=== PATIENT | male | born 1965 | race Caucasian/White ===

== ENCOUNTER 2018-09-23 09:33 | Outpatient (CLI) | payer MEDICARE, MEDICAID, SELFPAY ==
[2018-09-23 10:11] LABS: Abs Immature Grans 0.12 k/cumm (0.0-0.09); Absolute Basophil Count 0.01 k/cumm (0.0-0.2); Absolute Eosinophil Count 0.05 k/cumm (0.0-0.7); Absolute Monocyte Count 0.57 k/cumm (0.11-0.7); Absolute Neutrophil Count 7.43 k/cumm (1.2-6.7); Basophils % 0.1; Eosinophils % 0.6; HCT 40.6 % (40.0-50.0); Immature Grans % 1.3; Lymphocytes % 9.9; Mean Corp. HGB Concentration 34.5 g/dL (32.0-36.0); Mean Corpuscular Volume 95.8 fL (80-95); Mean Platelet Volume 9.5 fL (8.0-11.0); Monocytes % 6.3; Neutrophils % 81.8; Platelet Count 153 x1000/uL (130-400); RBC 4.24 m/cumm (4.50-6.00); RBC Distribution Width 13.9 % (11.8-14.1); White Blood Cell Count 9.08 k/cumm (4.4-10.8)
[2018-09-23 10:16] LABS: ALT 21 U/L (12-78); AST 16 U/L (15-37); Albumin 3.7 g/dL (3.4-5.0); Alkaline Phosphatase 82 U/L (46-116); Anion Gap 9.6 mmol/L (3-11); BUN 11 mg/dL (7-18); Bilirubin, Total 0.6 mg/dL (0.2-1.0); CO2 25.4 mmol/L (21.0-32.0); CREATININE 0.56 mg/dL (0.70-1.30); Calcium 8.4 mg/dL (8.5-10.1); Chloride 97 mmol/L (98-107); Glucose 111 mg/dL (70-100); Magnesium 1.7 mg/dL (1.8-2.4); Potassium 4.1 mmol/L (3.5-5.1); Sodium 132 mmol/L (136-145); Total Protein 7.1 g/dL (6.4-8.2)
== END 2018-09-23 09:53 ==
PROVIDERS: Internal Medicine; PCP Family Medicine; Visit Provider Radiology Radiation Oncology
DX: C15.9 Malignant neoplasm of esophagus, unspecified (principal)
CPT/HCPCS: 36415; 80053; 83735; 85025

== ENCOUNTER 2018-10-02 09:55 | Outpatient (CLI) | payer MEDICARE, MEDICAID, SELFPAY ==
[2018-10-02 10:28] LABS: Abs Immature Grans 0.04 k/cumm (0.0-0.09); Absolute Basophil Count 0.01 k/cumm (0.0-0.2); Absolute Eosinophil Count 0.07 k/cumm (0.0-0.7); Absolute Lymphocyte Count 0.59 k/cumm (1.2-3.4); Absolute Monocyte Count 0.47 k/cumm (0.11-0.7); Absolute Neutrophil Count 2.63 k/cumm (1.2-6.7); Basophils % 0.3; Eosinophils % 1.8; HCT 39.9 % (40.0-50.0); HGB 13.5 g/dL (13.5-17.5); Lymphocytes % 15.5; Mean Corp. HGB Concentration 33.8 g/dL (32.0-36.0); Mean Corpuscular Hemoglobin 33.7 pg (27.0-33.0); Mean Corpuscular Volume 99.5 fL (80-95); Mean Platelet Volume 8.8 fL (8.0-11.0); Monocytes % 12.3; Neutrophils % 69.1; Platelet Count 147 x1000/uL (130-400); RBC 4.01 m/cumm (4.50-6.00); RBC Distribution Width 14.5 % (11.8-14.1); White Blood Cell Count 3.81 k/cumm (4.4-10.8)
[2018-10-02 10:45] LABS: ALT 26 U/L (12-78); AST 17 U/L (15-37); Albumin 3.6 g/dL (3.4-5.0); Alkaline Phosphatase 92 U/L (46-116); Anion Gap 10.4 mmol/L (3-11); BUN 5 mg/dL (7-18); Bilirubin, Total 0.3 mg/dL (0.2-1.0); CO2 26.6 mmol/L (21.0-32.0); Calcium 8.9 mg/dL (8.5-10.1); Chloride 105 mmol/L (98-107); Glucose 103 mg/dL (70-100); Sodium 142 mmol/L (136-145); Total Protein 7.3 g/dL (6.4-8.2)
== END 2018-10-02 10:15 ==
PROVIDERS: PCP Family Medicine; Visit Provider Internal Medicine
DX: C15.9 Malignant neoplasm of esophagus, unspecified (principal)
CPT/HCPCS: 36415; 80053; 83735; 85025

== ENCOUNTER 2018-10-14 10:02 | Outpatient (CLI) | payer MEDICARE, MEDICAID, SELFPAY ==
[2018-10-14 10:35] LABS: Abs Immature Grans 0.07 k/cumm (0.0-0.09); Absolute Basophil Count 0.01 k/cumm (0.0-0.2); Absolute Eosinophil Count 0.06 k/cumm (0.0-0.7); Absolute Lymphocyte Count 0.37 k/cumm (1.2-3.4); Absolute Monocyte Count 1.07 k/cumm (0.11-0.7); Basophils % 0.2; HCT 38.6 % (40.0-50.0); HGB 13.6 g/dL (13.5-17.5); Immature Grans % 1.1; Mean Corp. HGB Concentration 35.2 g/dL (32.0-36.0); Mean Corpuscular Volume 96.5 fL (80-95); Mean Platelet Volume 8.8 fL (8.0-11.0); Monocytes % 17.3; Neutrophils % 74.4; Platelet Count 134 x1000/uL (130-400); RBC Distribution Width 14.5 % (11.8-14.1); White Blood Cell Count 6.18 k/cumm (4.4-10.8)
[2018-10-14 11:14] LABS: ALT 22 U/L (12-78); AST 11 U/L (15-37); Albumin 3.7 g/dL (3.4-5.0); Alkaline Phosphatase 98 U/L (46-116); Anion Gap 13.4 mmol/L (3-11); BUN 11 mg/dL (7-18); Bilirubin, Total 0.4 mg/dL (0.2-1.0); CO2 23.6 mmol/L (21.0-32.0); Calcium 9.1 mg/dL (8.5-10.1); Chloride 102 mmol/L (98-107); Glucose 119 mg/dL (70-100); Magnesium 1.9 mg/dL (1.8-2.4); Potassium 3.2 mmol/L (3.5-5.1); Sodium 139 mmol/L (136-145); Total Protein 7.7 g/dL (6.4-8.2)
== END 2018-10-14 10:22 ==
PROVIDERS: PCP Family Medicine; Visit Provider Internal Medicine
DX: C15.9 Malignant neoplasm of esophagus, unspecified (principal)
CPT/HCPCS: 36415; 80053; 83735; 85025

== ENCOUNTER 2018-10-21 09:05 | Outpatient (CLI) | payer MEDICARE, MEDICAID, SELFPAY ==
[2018-10-21 09:39] LABS: Abs Immature Grans 0.11 k/cumm (0.0-0.09); Absolute Basophil Count 0.01 k/cumm (0.0-0.2); Absolute Eosinophil Count 0.11 k/cumm (0.0-0.7); Absolute Lymphocyte Count 0.35 k/cumm (1.2-3.4); Absolute Monocyte Count 0.88 k/cumm (0.11-0.7); Absolute Neutrophil Count 5.48 k/cumm (1.2-6.7); Basophils % 0.1; Eosinophils % 1.6; HGB 13.3 g/dL (13.5-17.5); Immature Grans % 1.6; Mean Corp. HGB Concentration 35.9 g/dL (32.0-36.0); Mean Corpuscular Hemoglobin 34.4 pg (27.0-33.0); Mean Corpuscular Volume 95.6 fL (80-95); Mean Platelet Volume 8.4 fL (8.0-11.0); Monocytes % 12.7; Platelet Count 134 x1000/uL (130-400); RBC 3.87 m/cumm (4.50-6.00); RBC Distribution Width 14.3 % (11.8-14.1); White Blood Cell Count 6.94 k/cumm (4.4-10.8)
[2018-10-21 09:55] LABS: ALT 24 U/L (12-78); AST 12 U/L (15-37); Albumin 3.6 g/dL (3.4-5.0); Alkaline Phosphatase 100 U/L (46-116); Anion Gap 9.4 mmol/L (3-11); BUN 8 mg/dL (7-18); Bilirubin, Total 0.6 mg/dL (0.2-1.0); CO2 29.6 mmol/L (21.0-32.0); CREATININE 0.63 mg/dL (0.70-1.30); Calcium 9.2 mg/dL (8.5-10.1); Chloride 96 mmol/L (98-107); Glucose 122 mg/dL (70-100); Magnesium 1.7 mg/dL (1.8-2.4); Sodium 135 mmol/L (136-145); Total Protein 7.3 g/dL (6.4-8.2)
[2018-10-21 09:59] LABS: Potassium 2.9 mmol/L (3.5-5.1)
== END 2018-10-21 09:25 ==
PROVIDERS: PCP Family Medicine; Visit Provider Internal Medicine
DX: C15.9 Malignant neoplasm of esophagus, unspecified (principal)
CPT/HCPCS: 36415; 80053; 83735; 85025

== ENCOUNTER 2018-10-28 02:14 | Outpatient (CLI) | payer MEDICARE, MEDICAID, SELFPAY ==
[2018-10-28 10:57] LABS: Abs Immature Grans 0.04 k/cumm (0.0-0.09); Absolute Basophil Count 0.01 k/cumm (0.0-0.2); Absolute Eosinophil Count 0.17 k/cumm (0.0-0.7); Absolute Lymphocyte Count 0.19 k/cumm (1.2-3.4); Absolute Monocyte Count 0.38 k/cumm (0.11-0.7); Absolute Neutrophil Count 4.35 k/cumm (1.2-6.7); Basophils % 0.2; Eosinophils % 3.3; HCT 33.5 % (40.0-50.0); HGB 11.6 g/dL (13.5-17.5); Immature Grans % 0.8; Lymphocytes % 3.7; Mean Corp. HGB Concentration 34.6 g/dL (32.0-36.0); Mean Corpuscular Hemoglobin 34.1 pg (27.0-33.0); Mean Corpuscular Volume 98.5 fL (80-95); Mean Platelet Volume 8.7 fL (8.0-11.0); Monocytes % 7.4; Neutrophils % 84.6; Platelet Count 120 x1000/uL (130-400); RBC Distribution Width 14.5 % (11.8-14.1); White Blood Cell Count 5.14 k/cumm (4.4-10.8)
[2018-10-28 11:12] LABS: ALT 25 U/L (12-78); AST 13 U/L (15-37); Alkaline Phosphatase 95 U/L (46-116); BUN 9 mg/dL (7-18); Bilirubin, Total 0.4 mg/dL (0.2-1.0); CREATININE 0.54 mg/dL (0.70-1.30); Calcium 8.9 mg/dL (8.5-10.1); Chloride 100 mmol/L (98-107); Glucose 190 mg/dL (70-100); Magnesium 1.7 mg/dL (1.8-2.4); Potassium 3.5 mmol/L (3.5-5.1); Sodium 137 mmol/L (136-145); Total Protein 6.5 g/dL (6.4-8.2)
== END 2018-10-28 02:34 ==
PROVIDERS: PCP Family Medicine; Visit Provider Internal Medicine
DX: C15.9 Malignant neoplasm of esophagus, unspecified (principal)
CPT/HCPCS: 36415; 80053; 83735; 85025

== ENCOUNTER 2018-11-28 16:12 | Outpatient (CLI) | payer MEDICARE, MEDICAID, SELFPAY ==
[2018-11-28 16:32] LABS: Abs Immature Grans 0.11 k/cumm (0.0-0.09); Absolute Basophil Count 0.02 k/cumm (0.0-0.2); Absolute Eosinophil Count 0.09 k/cumm (0.0-0.7); Absolute Lymphocyte Count 1.15 k/cumm (1.2-3.4); Absolute Monocyte Count 0.85 k/cumm (0.11-0.7); Absolute Neutrophil Count 4.96 k/cumm (1.2-6.7); Basophils % 0.3; Eosinophils % 1.3; Immature Grans % 1.5; Mean Corp. HGB Concentration 32.4 g/dL (32.0-36.0); Mean Corpuscular Hemoglobin 34.8 pg (27.0-33.0); Mean Corpuscular Volume 107.2 fL (80-95); Mean Platelet Volume 8.8 fL (8.0-11.0); Monocytes % 11.8; Neutrophils % 69.1; Platelet Count 230 x1000/uL (130-400); RBC 3.45 m/cumm (4.50-6.00); RBC Distribution Width 18.7 % (11.8-14.1); White Blood Cell Count 7.18 k/cumm (4.4-10.8)
[2018-11-28 17:11] LABS: Anisocytosis 1+; Hypochromasia 1+; Macrocytosis 1+; Polychromasia Present
[2018-11-28 17:20] LABS: Bilirubin Negative (Negative); Blood Negative (Negative); Clarity Cloudy (Clear); Glucose Negative (Negative); Ketones Negative (Negative); Leukocyte Esterase Negative (Negative); Nitrite Negative (Negative); Specific Gravity 1.015 (1.005-1.025); pH 8.5 (5-8)
[2018-11-28 17:31] LABS: Bacteria Few HPF (Negative); C & S Indicated? No; Casts Negative LPF (Negative); Crystals Many Amorphous HPF (Negative); Epithelial Cells Negative HPF (Negative); Mucus Negative (Negative); RBC Negative (0-2); WBC Negative HPF (0-5)
[2018-11-28 19:19] LABS: ALT 16 U/L (12-78); AST 9 U/L (15-37); Albumin 3.4 g/dL (3.4-5.0); Alkaline Phosphatase 89 U/L (46-116); Anion Gap 11.4 mmol/L (3-11); BUN 12 mg/dL (7-18); Bilirubin, Total 0.3 mg/dL (0.2-1.0); CO2 25.6 mmol/L (21.0-32.0); CREATININE 0.67 mg/dL (0.70-1.30); Calcium 8.6 mg/dL (8.5-10.1); Chloride 105 mmol/L (98-107); Glucose 80 mg/dL (70-100); Potassium 3.8 mmol/L (3.5-5.1); Sodium 142 mmol/L (136-145); TSH 1.98 uIU/mL (0.36-3.74); Total Protein 7.3 g/dL (6.4-8.2)
== END 2018-11-28 16:32 ==
PROVIDERS: PCP Family Medicine; Visit Provider Nurse Practitioner
DX: R53.82 Chronic fatigue, unspecified (principal); C15.3 Malignant neoplasm of upper third of esophagus
CPT/HCPCS: 36415; 80053; 81003; 81015; 84443; 85025

== ENCOUNTER 2019-03-25 12:37 | Outpatient (CLI) | payer MEDICARE, MEDICAID, SELFPAY ==
[2019-03-25 13:04] LABS: Abs Immature Grans 0.13 k/cumm (0.0-0.09); Absolute Basophil Count 0.01 k/cumm (0.0-0.2); Absolute Neutrophil Count 6.01 k/cumm (1.2-6.7); Basophils % 0.1; HCT 42.9 % (40.0-50.0); HGB 14.8 g/dL (13.5-17.5); Immature Grans % 1.8; Lymphocytes % 8.2; Mean Corp. HGB Concentration 34.5 g/dL (32.0-36.0); Mean Corpuscular Hemoglobin 34.2 pg (27.0-33.0); Mean Corpuscular Volume 99.1 fL (80-95); Mean Platelet Volume 8.6 fL (8.0-11.0); Monocytes % 8.2; Neutrophils % 81.7; Platelet Count 222 x1000/uL (130-400); RBC 4.33 m/cumm (4.50-6.00); RBC Distribution Width 14.9 % (11.8-14.1); White Blood Cell Count 7.35 k/cumm (4.4-10.8)
[2019-03-25 13:21] LABS: ALT 38 U/L (16-63); AST 33 U/L (15-37); Albumin 3.6 g/dL (3.4-5.0); Alkaline Phosphatase 93 U/L (46-116); Anion Gap 19.1 mmol/L (3-11); BUN 12 mg/dL (7-18); Bilirubin, Total 0.7 mg/dL (0.2-1.0); CO2 22.9 mmol/L (21.0-32.0); CREATININE 0.87 mg/dL (0.70-1.30); Calcium 9.2 mg/dL (8.5-10.1); Chloride 94 mmol/L (98-107); Glucose 262 mg/dL (74-106); Magnesium 1.7 mg/dL (1.8-2.4); Potassium 3.5 mmol/L (3.5-5.1); Sodium 136 mmol/L (136-145); Total Protein 7.5 g/dL (6.4-8.2)
== END 2019-03-25 12:57 ==
PROVIDERS: PCP Family Medicine; Visit Provider Internal Medicine
DX: C15.9 Malignant neoplasm of esophagus, unspecified (principal)
CPT/HCPCS: 36415; 80053; 83735; 85025

== ENCOUNTER 2020-08-31 07:36 | Outpatient (RCR) | payer OTHER, MEDICAID, SELFPAY ==
--- OUTSIDE RECORDS SUMMARY | 2020-08-31 07:44 | XMS_ITS ---
:1965 External Reference #:[id number] Author Care Team Providers Name Role Phone Maddie Anderson Primary Care Provider Unavailable Allergies Code Code System Name Reaction Severity Status Onset Bee Venom Anaphylaxis Severe Active ? Protein (Honey Bee) Medications Name Status Start Date Stop Date ? ? acetazolamide 250 mg tablet Active ? Not available Take 2 tablets 3 times a day by oral route. aspirin 81 mg tablet,delayed release Active ? Not available Take 1 tablet every day by oral route. divalproex 500 mg tablet,delayed release Active ? Not available Take 1 tablet twice a day by oral route. Flovent HFA 110 mcg/actuation aerosol inhaler Active ? Not available Inhale 1 puff twice a day by inhalation route. Flucelvax Quad (PF) 60 mcg Completed ? 04/01/2020 (15 mcg x 4)/0.5 mL IM syringe fluvoxamine 50 mg tablet Active ? Not arie ilable Take 1 tablet every day by oral route. gabapentin 100 mg capsule Active ? Not av ailable Take 3 capsules 3 times a day by oral route. ibuprofen 200 mg tablet Active ? Not avai lable Take 2 tablets every 6 hours by oral route with meals. levothyroxine 25 mcg tablet Active ? Not available TAKE 1 TABLET BY MOUTH DAILY lisinopril 10 mg tablet Active ? Not avai lable TAKE 1 TABLET BY MOUTH EVERY DAY lorazepam 1 mg tablet Active ? Not availa ble TAKE 1 TABLET BY MOUTH THREE TIMES DAILY NEEDED ondansetron HCl 8 mg tablet Active ? Not available TAKE 1 TABLET BY MOUTH TWICE DAILY NEEDED oxycodone 5 mg tablet Completed ? 06/04/2020 TK 1 T Q 4 TO 6 H PRN FOR SEVERE PAIN potassium chloride ER 10 mEq capsule,extended release Active ? Not available Take 1 capsule every day by oral route. pravastatin 40 mg tablet Active ? Not arie ilable Take 1 tablet every day by oral route. riboflavin (vitamin B2) 100 mg tablet Active ? Not available Take 4 tablets every day by oral route. risperidone 1 mg tablet Active ? Not avai lable Take 1 tablet by oral route. topiramate 50 mg tablet Active ? Not avai lable Take 1 tablet twice a day by oral route. trazodone 100 mg tablet Active ? Not avai lable Take 2 tablets by oral route. Problems Name Status Onset Date Source ? Malignant Tumor of Esophagus Active 07/17/2018 ? 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 Anxiety Active 04/01/2020 ? Alcohol Dependence Unknown 04/01/2020 ? Alcohol Dependence Active 04/01/2020 ? Depressive Disorder Active 04/01/2020 ? Hypertensive Disorder Active 04/01/2020 ? 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 Procedures Date Name Performed by ? ? Tonsillectomy Information not avai lable ? Operation on Lung Information not avai lable ? Shoulder Surgery Procedure Information n ot available Notes: Left ? Hernia Repair Information not avai lable Results Lab Results None recorded. Past Encounters 07/08/2020 Hypertensive Disorder; Malignant Tumor o f Esophagus; Depressive Disorder; Tobacco User Carlos Anderson MD: [address] [place] [address], Ph. 06/04/2020 Essential Hypertension; Chronic Headache Disorder; Malignant Tumor of Esophagus Carlos Anderson MD: [address] [place] [phone], Ph. Social History Tobacco Smoking Status Heavy Tobacco Smoker (1/2 PPD) Vaccine List Vaccine Type COVID-19, mRNA, LNP-S, PF, 100 mcg/0.5 m L dose 06/26/2020?0.5 mL influenza, recombinant, quadrIvalent,inj ectable, preservative free 01/15/2020 Plan of Care Reminders Provider Appointments None ? ? recorded. Lab None ? ? recorded. Referral None ? ? recorded. Procedures None ? ? recorded. Surgeries None ? ? recorded. Imaging None ? ? recorded. Vitals 07/08/2020 02:15PM Office Visit 30 Height Blood Pressure 5 ft 11 in 140/77 mm[Hg] 06/04/2020 04:30PM Office Visit 30 Height Weight BMI Blood Pressure 5 ft 11 in 260 lbs 36.3 kg/m2 160/90 mm[Hg]
--- OUTSIDE RECORDS SUMMARY | 2020-08-31 07:44 | XMS_ITS | Encounter Summary ---
:1965 External Reference #:[id number] Author Reason for Visit None recorded. Assessment and Plan 1. Essential hypertension ? lisinopril 10 mg tablet 2. Chronic headache disorder ? riboflavin (vitamin B2) 10 0 mg tablet 3. Malignant tumor of esophagus Discussed unavoidable need to wait for f uture CT scan. He ;understands but still stressful. He will f/u with oncology as planned. Discussion Note: None recorded.Patient educational handouts: No information available. Plan of Care Reminders Provider Appointments Office 10/08/2020 Carlos Anderson MD Visit 30 1:45PM Lab None ? ? recorded. Referral None ? ? recorded. Procedures None ? ? recorded. Surgeries None ? ? recorded. Imaging None ? ? recorded. Medications Name Start Date ? ? acetazolamide 250 mg tablet ? Take 2 tablets 3 times a day by oral route. aspirin 81 mg tablet,delayed release ? Take 1 tablet every day by oral route. divalproex 500 mg tablet,delayed release ? Take 1 tablet twice a day by oral route. Flovent HFA 110 mcg/actuation aerosol inhaler ? Inhale 1 puff twice a day by inhalation route. fluvoxamine 50 mg tablet ? Take 1 tablet every day by oral route. gabapentin 100 mg capsule ? Take 3 capsules 3 times a day by oral route. ibuprofen 200 mg tablet ? Take 2 tablets every 6 hours by oral route with meals . levothyroxine 25 mcg tablet ? TAKE 1 TABLET BY MOUTH DAILY lisinopril 10 mg tablet ? TAKE 1 TABLET BY MOUTH EVERY DAY lorazepam 1 mg tablet ? TAKE 1 TABLET BY MOUTH THREE TIMES DAILY NEEDED ondansetron HCl 8 mg tablet ? TAKE 1 TABLET BY MOUTH TWICE DAILY NEEDED potassium chloride ER 10 mEq capsule,extended release ? Take 1 capsule every day by oral route. pravastatin 40 mg tablet ? Take 1 tablet every day by oral route. riboflavin (vitamin B2) 100 mg tablet ? Take 4 tablets every day by oral route. risperidone 1 mg tablet ? Take 1 tablet by oral route. topiramate 50 mg tablet ? Take 1 tablet twice a day by oral route. trazodone 100 mg tablet ? Take 2 tablets by oral route. Medications Administered None recorded. Vitals Height Weight BMI Blood Pressure 5 ft 11 in 260 lbs 36.3 kg/m2 160/90 mm[Hg] Results Lab Results None recorded. Allergies Code Code System Name Reaction Severity Onset Bee Venom Anaphylaxis Severe ? Protein (Honey Bee) Problems Name Status Onset Date Source ? Malignant Tumor of Esophagus Active 07/17/2018 ? Anxiety Active 04/01/2020 ? Alcohol Dependence Active 04/01/2020 ? Depressive Disorder Active 04/01/2020 ? Hypertensive Disorder Active 04/01/2020 ? Procedures Date Name Performed by ? ? Tonsillectomy Information not avai lable ? Operation on Lung Information not avai lable ? Shoulder Surgery Procedure Information n ot available Notes: Left ? Hernia Repair Information not avai lable Vaccine List Vaccine Type COVID-19, mRNA, LNP-S, PF, 100 mcg/0.5 m L dose 06/26/2020?0.5 mL influenza, recombinant, quadrIvalent,inj ectable, preservative free 01/15/2020 Social History Tobacco Smoking Status Heavy Tobacco Smoker (1/2 PPD) Alcohol intake None Notes: Former - Q uit Drinking 2019 Illicit drugs Never Family History Relation Problem Onset Age of Age Notes Father Malignant tumor of (No 62 (No Notes ) pharynx Information) Mother Hypertensive disorder (No N/A (No No chrissie) Information) Functional Status Unknown. Past Encounters 06/04/2020 Essential Hypertension; Chronic Headache Disorder; Malignant Tumor of Esophagus Carlos Anderson MD: [address] [phone], Ph. History of Present Illness Note: <p>Buck is a patient of mine from [facility]. He had throat cancer. He had a PET scan that showed some small spots on his lung, too small to bx but new since the previous scan three months before.His appetite is fine. His energy is fine. He is worried that his cancer has returned and finds the 2to 3 month wait ahead stressful. His bp is elevated and he has gained weight. His last alcoholic beverage was a few weeks ago. He is a bit depressed.</p> Review of Systems ? Comprehensive General Adult ROS Reported By: Patient Constitutional: Constitutional: no fever, no night sweats, weight gain (lbs) Eyes: Eyes: no dry eyes, no vision change ENMT: Ears: no difficulty hearing, no ear pain. Nose: no nose problems, no sinus problems. Mouth/Throat: no sore throat, no teeth problems, no sinusitis Cardiovascular: Cardiovascular: no chest finesse n, no shortness of breath when walking, no ankle swelling Respiratory: Respiratory: no cough, no sh ortness of breath Gastrointestinal: Gastrointestinal: no abdomin al pain, no nausea, no vomiting, no constipation, normal appetit e, no diarrhea Genitourinary: Genitourinary: no difficulty urinating Musculoskeletal: Musculoskeletal: no muscle a ches, no arthralgias/joint pain, no back pain Integumentary: Skin: no rashes, no changes in hair/nails Neurologic: Neurologic: no loss of consc iousness, no dizziness, no headaches Psychiatric: Psych: no depression, no sle ep disturbances, no anxiety Endocrine: Endocrine: no fatigue Allergic/Immunologic: Allergy/Immunologic: no sinu s pressure Physical Exam ? General Adult Exam Reported By: Patient Constitutional: General Appearance: healthy- appearing, well-developed, obese. Level of Distress: NAD. Ambulation : ambulating normally Psychiatric: Insight: good judgement. Men carlos manuel Status: active and alert, normal mood, normal affect. Orienta tion: to time, to place, to person. Memory: recent memory normal , remote memory normal Head: Head: normocephalic, atrauma tic Eyes: Lids and Conjunctivae: non-i njected, no discharge. EOM: EOMI. Lens: clear. Sclerae: non-icteric ENMT: Ears: no lesions on external ear. Hearing: no hearing loss. Nose: no lesions on external nose, nares patent. Oropharynx: no erythema, no exudates Neck: Neck: no masses. Lymph Nodes : no cervical LAD, no supraclavicular LAD Lungs: Respiratory effort: no dyspn ea. Auscultation: breath sounds normal, good air movement, CTA excep t as noted, no wheezing, no rales/crackles, no rhonchi Cardiovascular: Heart Auscultation: RRR, nor mal S1, normal S2, no murmurs. Pulses including femoral / pedal: n ormal throughout Musculoskeletal:: Motor Strength and Tone: nor mal motor strength, normal tone. Joints, Bones, and Muscles: normal movement of all extremities, no bony abnormalities, no contr actures, no tenderness Neurologic: Gait and Station: normal gai t. Coordination and Cerebellum: no tremor Skin: Inspection and palpation: no rash, no lesions
--- OUTSIDE RECORDS SUMMARY | 2020-08-31 07:44 | XMS_ITS | Encounter Summary ---
:1965 External Reference #:[id number] Author Reason for Visit follow up ER visit Assessment and Plan 1. Hypertensive disorder BP controlled. No change in me ds. 2. Malignant tumor of esophagus Waiting for the results of the biopsy on his esophagus. F/u with oncology in September, sooner if path is positive. 3. Depressive disorder Stable given the circumstances . He has a hard time not worrying. 4. Tobacco user Discussed importance and strat egies for smoking cessation. Discussion Note: None recorded.Patient educational handouts: No [...] route. Medications Administered None recorded. Vitals Height Blood Pressure 5 ft 11 in 140/77 mm[Hg] Results Lab Results None recorded. Allergies [...] chrissie) Information) Functional Status Unknown. Past Encounters 07/08/2020 Hypertensive Disorder; Malignant Tumor o f Esophagus; Depressive Disorder; Tobacco User Carlos Anderson MD: [address] [place] [phone], Ph. History of Present Illness Note: <p>Buck is here to f/u. He had EGD and bx. He is concerned that his cancer may be back. He has not heard the bx report yet. He is smoking < 1 ppd. He is eating ok. Swallowing is better since his esophagus was dilated. He is not drinking alcohol.</p> Review of Systems ? Comprehensive General Adult ROS Reported By: Patient Constitutional: Constitutional: no fever, no chills ENMT: Nose: frequent nosebleeds; R ight nostril Cardiovascular: Cardiovascular: no chest finesse n, palpitations Respiratory: Respiratory: no cough, short ness of breath Gastrointestinal: Gastrointestinal: no abdomin al pain, no nausea, no vomiting, no constipation, no diarrhea Genitourinary: Genitourinary: no difficulty urinating Musculoskeletal: Musculoskeletal: arthralgias /joint pain, back pain; Right hip pain Neurologic: Neurologic: dizziness, frequ ent or severe headaches, migraines Hematologic/Lymphatic: Hematologic/Lymphatic no bru ising, excessive bleeding; Right nostril Physical Exam ? General Adult Exam Reported [...] RRR, nor mal S1, normal S2, no murmurs Musculoskeletal:: Motor Strength and Tone: nor mal motor strength, normal tone. Joints, Bones, and Muscles: normal movement of all extremities, no bony abnormalities, no contr actures, no tenderness Neurologic: Gait and Station: normal gai t. Coordination and Cerebellum: no tremor Skin: Inspection and palpation: no lesions; Below left knee medially 1 cm subcutaneous mass
[2020-08-31] MEDS: Normal Saline Flush 10 ML SYR IVP (08:30)
[2020-08-31 09:02] LABS: Abs Immature Grans 0.08 10^3/uL (0.0-0.06); Absolute Basophil Count 0.02 10^3/uL (0.0-0.2); Absolute Eosinophil Count 0.05 10^3/uL (0.0-0.7); Absolute Lymphocyte Count 0.62 10^3/uL (1.2-3.4); Absolute Monocyte Count 0.83 10^3/uL (0.1-0.8); Basophils % 0.3; Eosinophils % 0.7; HCT 44.5 % (40.0-50.0); HGB 15.4 g/dL (13.5-17.5); Immature Grans % 1.1; Lymphocytes % 8.5; MCH 34.2 pg (27.0-33.0); MCHC 34.6 % (32.0-36.0); MCV 98.9 fL (80-95); MPV 8.1 fL (8.0-11.0); Monocytes % 11.4; Nucleated RBC 0 %; Platelet Count 134 10^3/uL (130-400); RDW 15.2 % (11.8-14.1); RDW-SD 55.8 fL
[2020-08-31 09:29] LABS: ALT 37 U/L (16-63); AST 22 U/L (15-37); Albumin 3.8 g/dL (3.4-5.0); Alkaline Phosphatase 99 U/L (46-116); Anion Gap 7.4 mmol/L (3-11); BUN 8 mg/dL (7-18); Bilirubin, Total 0.3 mg/dL (0.2-1.0); CO2 30.6 mmol/L (21.0-32.0); CREATININE 0.8 mg/dL (0.70-1.30); Calcium 8.9 mg/dL (8.5-10.1); Chloride 100 mmol/L (98-107); FREE T4 0.84 ng/dL (0.76-1.46); Glucose 126 mg/dL (74-106); Magnesium 1.8 mg/dL (1.8-2.4); Sodium 138 mmol/L (136-145); TSH 12.51 uIU/mL (0.36-3.74); Total Protein 7.3 g/dL (6.4-8.2)
== END 2020-09-13 23:59 | disposition home or self-care (01) ==
LOC: INF 07:36
PROVIDERS: PCP Family Medicine; Visit Provider Internal Medicine
DX: Z79.899 Other long term (current) drug therapy (principal); C15.9 Malignant neoplasm of esophagus, unspecified; R94.6 Abnormal results of thyroid function studies
CPT/HCPCS: 36591; 80053; 83735; 84439; 84443; 85025

== ENCOUNTER 2020-10-12 10:00 | Outpatient (RCR) | payer OTHER, MEDICAID, SELFPAY ==
[2020-09-14] MEDS: Normal Saline Flush 10 ML SYR IVP (08:59)
[2020-09-14 09:06] LABS: Abs Immature Grans 0.06 10^3/uL (0.0-0.06); Absolute Basophil Count 0.01 10^3/uL (0.0-0.2); Absolute Eosinophil Count 0.06 10^3/uL (0.0-0.7); Absolute Lymphocyte Count 0.62 10^3/uL (1.2-3.4); Absolute Monocyte Count 0.55 10^3/uL (0.1-0.8); Absolute Neutrophil Count 2.46 10^3/uL (1.2-6.7); Basophils % 0.3; Eosinophils % 1.6; HCT 42.1 % (40.0-50.0); HGB 14.8 g/dL (13.5-17.5); Immature Grans % 1.6; Lymphocytes % 16.5; MCHC 35.2 % (32.0-36.0); MCV 96.8 fL (80-95); MPV 8.4 fL (8.0-11.0); Monocytes % 14.6; Neutrophils % 65.4; Nucleated RBC 0 %; Platelet Count 132 10^3/uL (130-400); RBC 4.35 10^6/uL (4.36-5.78); RDW 15.5 % (11.8-14.1); RDW-SD 54.1 fL; WBC 3.76 10^3/uL (4.4-10.8)
[2020-09-14 09:16] LABS: ALT 34 U/L (16-63); AST 21 U/L (15-37); Albumin 3.7 g/dL (3.4-5.0); Alkaline Phosphatase 101 U/L (46-116); Anion Gap 9.2 mmol/L (3-11); BUN 7 mg/dL (7-18); Bilirubin, Total 0.2 mg/dL (0.2-1.0); CO2 28.8 mmol/L (21.0-32.0); CREATININE 0.7 mg/dL (0.70-1.30); Calcium 8.9 mg/dL (8.5-10.1); Chloride 101 mmol/L (98-107); FREE T4 0.68 ng/dL (0.76-1.46); Glucose 119 mg/dL (74-106); Magnesium 2.1 mg/dL (1.8-2.4); Potassium 4.5 mmol/L (3.5-5.1); Sodium 139 mmol/L (136-145); TSH 18.55 uIU/mL (0.36-3.74); Total Protein 7.3 g/dL (6.4-8.2)
[2020-09-28] MEDS: Normal Saline Flush 10 ML SYR IVP (09:00)
[2020-09-28 09:10] LABS: Abs Immature Grans 0.07 10^3/uL (0.0-0.06); Absolute Eosinophil Count 0.05 10^3/uL (0.0-0.7); Absolute Lymphocyte Count 0.49 10^3/uL (1.2-3.4); Absolute Neutrophil Count 2.55 10^3/uL (1.2-6.7); Eosinophils % 1.3; HCT 41.3 % (40.0-50.0); HGB 14.4 g/dL (13.5-17.5); Immature Grans % 1.8; Lymphocytes % 12.7; MCH 34.4 pg (27.0-33.0); MCHC 34.9 % (32.0-36.0); MCV 98.6 fL (80-95); Monocytes % 18.1; Neutrophils % 66.1; Nucleated RBC 0 %; Platelet Count 128 10^3/uL (130-400); RBC 4.19 10^6/uL (4.36-5.78); RDW 16.2 % (11.8-14.1); RDW-SD 56.7 fL; WBC 3.86 10^3/uL (4.4-10.8)
[2020-09-28 09:30] LABS: ALT 34 U/L (16-63); AST 28 U/L (15-37); Albumin 3.6 g/dL (3.4-5.0); Alkaline Phosphatase 96 U/L (46-116); Anion Gap 7.3 mmol/L (3-11); BUN 7 mg/dL (7-18); Bilirubin, Total 0.3 mg/dL (0.2-1.0); CO2 29.7 mmol/L (21.0-32.0); CREATININE 0.7 mg/dL (0.70-1.30); Calcium 8.5 mg/dL (8.5-10.1); Chloride 103 mmol/L (98-107); FREE T4 0.83 ng/dL (0.76-1.46); Glucose 106 mg/dL (74-106); Magnesium 2.2 mg/dL (1.8-2.4); Potassium 4.5 mmol/L (3.5-5.1); Sodium 140 mmol/L (136-145); TSH 13.58 uIU/mL (0.36-3.74); Total Protein 7.1 g/dL (6.4-8.2)
[2020-10-12] MEDS: Normal Saline Flush 10 ML SYR IVP (08:54)
[2020-10-12 08:55] LABS: Abs Immature Grans 0.05 10^3/uL (0.0-0.06); Absolute Basophil Count 0.01 10^3/uL (0.0-0.2); Absolute Eosinophil Count 0.08 10^3/uL (0.0-0.7); Absolute Lymphocyte Count 0.68 10^3/uL (1.2-3.4); Absolute Monocyte Count 1.07 10^3/uL (0.1-0.8); Absolute Neutrophil Count 4.58 10^3/uL (1.2-6.7); Basophils % 0.2; Eosinophils % 1.2; HCT 42.5 % (40.0-50.0); HGB 14.6 g/dL (13.5-17.5); Immature Grans % 0.8; Lymphocytes % 10.5; MCH 35.3 pg (27.0-33.0); MCHC 34.4 % (32.0-36.0); MCV 102.7 fL (80-95); Monocytes % 16.5; Neutrophils % 70.8; Nucleated RBC 0 %; Platelet Count 108 10^3/uL (130-400); RBC 4.14 10^6/uL (4.36-5.78); RDW 16.6 % (11.8-14.1); RDW-SD 63.4 fL; WBC 6.47 10^3/uL (4.4-10.8)
[2020-10-12 09:22] LABS: ALT 39 U/L (16-63); AST 35 U/L (15-37); Albumin 3.6 g/dL (3.4-5.0); Alkaline Phosphatase 85 U/L (46-116); Anion Gap 8.6 mmol/L (3-11); BUN 9 mg/dL (7-18); Bilirubin, Total 0.4 mg/dL (0.2-1.0); CO2 27.4 mmol/L (21.0-32.0); CREATININE 0.7 mg/dL (0.70-1.30); Calcium 8.8 mg/dL (8.5-10.1); Chloride 100 mmol/L (98-107); FREE T4 0.78 ng/dL (0.76-1.46); Glucose 118 mg/dL (74-106); Potassium 4.1 mmol/L (3.5-5.1); Sodium 136 mmol/L (136-145); TSH 22.09 uIU/mL (0.36-3.74); Total Protein 7.2 g/dL (6.4-8.2)
== END 2020-10-13 23:59 | disposition home or self-care (01) ==
LOC: INF 10:00
PROVIDERS: PCP Family Medicine; Visit Provider Internal Medicine
DX: C15.9 Malignant neoplasm of esophagus, unspecified (principal); R94.6 Abnormal results of thyroid function studies; Z45.2 Encounter for adjustment and management of vascular access device; Z79.899 Other long term (current) drug therapy
CPT/HCPCS: 36591; 80053; 83735; 84439; 84443; 85025

== ENCOUNTER 2020-11-11 03:51 | Outpatient (RCR) | payer OTHER, MEDICAID, SELFPAY ==
[2020-10-26] MEDS: Normal Saline Flush 10 ML SYR IVP (08:51)
[2020-10-26 09:07] LABS: Abs Immature Grans 0.08 10^3/uL (0.0-0.06); Absolute Basophil Count 0.02 10^3/uL (0.0-0.2); Absolute Eosinophil Count 0.05 10^3/uL (0.0-0.7); Absolute Monocyte Count 0.83 10^3/uL (0.1-0.8); Basophils % 0.4; HCT 42.3 % (40.0-50.0); HGB 14.6 g/dL (13.5-17.5); Immature Grans % 1.6; Lymphocytes % 10.2; MCH 35.3 pg (27.0-33.0); MCHC 34.5 % (32.0-36.0); MCV 102.2 fL (80-95); MPV 8.7 fL (8.0-11.0); Neutrophils % 69.8; Nucleated RBC 0 %; Platelet Count 139 10^3/uL (130-400); RBC 4.14 10^6/uL (4.36-5.78); RDW-SD 63.9 fL; WBC 4.88 10^3/uL (4.4-10.8)
[2020-10-26 09:31] LABS: ALT 26 U/L (16-63); AST 22 U/L (15-37); Albumin 3.6 g/dL (3.4-5.0); Alkaline Phosphatase 105 U/L (46-116); Anion Gap 7.6 mmol/L (3-11); BUN 6 mg/dL (7-18); Bilirubin, Total 0.5 mg/dL (0.2-1.0); CO2 30.4 mmol/L (21.0-32.0); CREATININE 0.8 mg/dL (0.70-1.30); Calcium 9.1 mg/dL (8.5-10.1); Chloride 100 mmol/L (98-107); FREE T4 0.89 ng/dL (0.76-1.46); Glucose 115 mg/dL (74-106); Magnesium 2.3 mg/dL (1.8-2.4); Sodium 138 mmol/L (136-145); TSH 18.95 uIU/mL (0.36-3.74); Total Protein 7.3 g/dL (6.4-8.2)
[2020-11-09] MEDS: Normal Saline Flush 10 ML SYR IVP (09:01)
[2020-11-09 09:19] LABS: Abs Immature Grans 0.08 10^3/uL (0.0-0.06); Absolute Basophil Count 0.02 10^3/uL (0.0-0.2); Absolute Eosinophil Count 0.03 10^3/uL (0.0-0.7); Absolute Lymphocyte Count 0.53 10^3/uL (1.2-3.4); Absolute Monocyte Count 1.01 10^3/uL (0.1-0.8); Absolute Neutrophil Count 4.08 10^3/uL (1.2-6.7); Basophils % 0.3; Eosinophils % 0.5; HCT 41.9 % (40.0-50.0); HGB 14.4 g/dL (13.5-17.5); Immature Grans % 1.4; Lymphocytes % 9.2; MCH 35.7 pg (27.0-33.0); MCHC 34.4 % (32.0-36.0); MPV 9.4 fL (8.0-11.0); Monocytes % 17.6; Nucleated RBC 0 %; Platelet Count 137 10^3/uL (130-400); RBC 4.03 10^6/uL (4.36-5.78); RDW 17.3 % (11.8-14.1); RDW-SD 66.5 fL; WBC 5.75 10^3/uL (4.4-10.8)
[2020-11-09 09:40] LABS: ALT 28 U/L (16-63); AST 22 U/L (15-37); Albumin 3.7 g/dL (3.4-5.0); Alkaline Phosphatase 101 U/L (46-116); Anion Gap 6.3 mmol/L (3-11); BUN 10 mg/dL (7-18); Bilirubin, Total 0.5 mg/dL (0.2-1.0); CO2 31.7 mmol/L (21.0-32.0); CREATININE 0.7 mg/dL (0.70-1.30); Calcium 9.2 mg/dL (8.5-10.1); Chloride 101 mmol/L (98-107); Glucose 118 mg/dL (74-106); Magnesium 2.2 mg/dL (1.8-2.4); Potassium 4.1 mmol/L (3.5-5.1); Sodium 139 mmol/L (136-145); TSH 15.57 uIU/mL (0.36-3.74); Total Protein 7.2 g/dL (6.4-8.2)
[2020-11-09 09:41] LABS: FREE T4 0.94 ng/dL (0.76-1.46)
== END 2020-11-13 23:59 | disposition home or self-care (01) ==
LOC: INF 03:51
PROVIDERS: PCP Family Medicine; Visit Provider Internal Medicine
DX: C15.9 Malignant neoplasm of esophagus, unspecified (principal); R94.6 Abnormal results of thyroid function studies; Z79.899 Other long term (current) drug therapy; Z45.2 Encounter for adjustment and management of vascular access device
CPT/HCPCS: 36591; 80053; 83735; 84439; 84443; 85025

== ENCOUNTER 2020-12-07 03:58 | Outpatient (RCR) | payer OTHER, MEDICAID, SELFPAY ==
[2020-11-23] MEDS: Normal Saline Flush 10 ML SYR IVP (08:41)
[2020-11-23 08:55] LABS: Abs Immature Grans 0.07 10^3/uL (0.0-0.06); Absolute Basophil Count 0.02 10^3/uL (0.0-0.2); Absolute Eosinophil Count 0.07 10^3/uL (0.0-0.7); Absolute Lymphocyte Count 0.62 10^3/uL (1.2-3.4); Absolute Monocyte Count 1.08 10^3/uL (0.1-0.8); Basophils % 0.3; HCT 40.4 % (40.0-50.0); HGB 13.9 g/dL (13.5-17.5); Lymphocytes % 9.2; MCH 36.4 pg (27.0-33.0); MCHC 34.4 % (32.0-36.0); MCV 105.8 fL (80-95); MPV 8.9 fL (8.0-11.0); Neutrophils % 72.5; Nucleated RBC 0 %; Platelet Count 118 10^3/uL (130-400); RBC 3.82 10^6/uL (4.36-5.78); RDW 16.8 % (11.8-14.1); WBC 6.76 10^3/uL (4.4-10.8)
[2020-11-23 09:13] LABS: ALT 26 U/L (16-63); AST 20 U/L (15-37); Albumin 3.6 g/dL (3.4-5.0); Alkaline Phosphatase 99 U/L (46-116); Anion Gap 6.6 mmol/L (3-11); BUN 8 mg/dL (7-18); Bilirubin, Total 0.4 mg/dL (0.2-1.0); CO2 29.4 mmol/L (21.0-32.0); CREATININE 0.7 mg/dL (0.70-1.30); Chloride 100 mmol/L (98-107); FREE T4 1.02 ng/dL (0.76-1.46); Glucose 112 mg/dL (74-106); Magnesium 2.2 mg/dL (1.8-2.4); Potassium 4.2 mmol/L (3.5-5.1); Sodium 136 mmol/L (136-145); TSH 12.12 uIU/mL (0.36-3.74); Total Protein 7.1 g/dL (6.4-8.2)
[2020-11-23 09:18] LABS: Diff Comment Diff Reviewed; Macrocytosis 1+; Polychromasia Present
[2020-12-07] MEDS: Normal Saline Flush 10 ML SYR IVP (08:34)
[2020-12-07 08:47] LABS: Abs Immature Grans 0.12 10^3/uL (0.0-0.06); Absolute Basophil Count 0.02 10^3/uL (0.0-0.2); Absolute Eosinophil Count 0.04 10^3/uL (0.0-0.7); Absolute Lymphocyte Count 0.57 10^3/uL (1.2-3.4); Absolute Neutrophil Count 4.29 10^3/uL (1.2-6.7); Basophils % 0.3; Eosinophils % 0.6; HGB 13.5 g/dL (13.5-17.5); Immature Grans % 1.9; Lymphocytes % 9.1; MCH 36.5 pg (27.0-33.0); MCHC 34.6 % (32.0-36.0); MCV 105.4 fL (80-95); MPV 9.3 fL (8.0-11.0); Monocytes % 19.2; Neutrophils % 68.9; Nucleated RBC 0 %; Platelet Count 146 10^3/uL (130-400); RDW 15.1 % (11.8-14.1); RDW-SD 59.6 fL; WBC 6.24 10^3/uL (4.4-10.8)
[2020-12-07 09:00] LABS: Magnesium 2.1 mg/dL (1.8-2.4)
[2020-12-07 09:14] LABS: ALT 27 U/L (16-63); AST 20 U/L (15-37); Albumin 3.6 g/dL (3.4-5.0); Alkaline Phosphatase 98 U/L (46-116); Anion Gap 5.1 mmol/L (3-11); BUN 9 mg/dL (7-18); Bilirubin, Total 0.4 mg/dL (0.2-1.0); CO2 31.9 mmol/L (21.0-32.0); CREATININE 0.7 mg/dL (0.70-1.30); Calcium 9.1 mg/dL (8.5-10.1); Chloride 100 mmol/L (98-107); FREE T4 0.93 ng/dL (0.76-1.46); Glucose 117 mg/dL (74-106); Potassium 3.9 mmol/L (3.5-5.1); Sodium 137 mmol/L (136-145); TSH 12.95 uIU/mL (0.36-3.74); Total Protein 7.1 g/dL (6.4-8.2)
== END 2020-12-14 23:59 | disposition home or self-care (01) ==
LOC: INF 03:58
PROVIDERS: PCP Family Medicine; Visit Provider Internal Medicine
DX: C15.3 Malignant neoplasm of upper third of esophagus (principal); R94.6 Abnormal results of thyroid function studies; Z79.899 Other long term (current) drug therapy; Z45.2 Encounter for adjustment and management of vascular access device
CPT/HCPCS: 36591; 80053; 83735; 84439; 84443; 85025

== ENCOUNTER 2021-01-04 00:55 | Outpatient (RCR) | payer OTHER, MEDICAID, SELFPAY ==
[2020-12-22] MEDS: Normal Saline Flush 10 ML SYR IVP (07:15)
[2020-12-22 07:22] LABS: Absolute Basophil Count 0.01 10^3/uL (0.0-0.2); Absolute Eosinophil Count 0.07 10^3/uL (0.0-0.7); Absolute Lymphocyte Count 0.64 10^3/uL (1.2-3.4); Absolute Monocyte Count 0.94 10^3/uL (0.1-0.8); Absolute Neutrophil Count 2.72 10^3/uL (1.2-6.7); Basophils % 0.2; Eosinophils % 1.6; Immature Grans % 2.2; Lymphocytes % 14.3; MCH 35.9 pg (27.0-33.0); MCHC 34.1 % (32.0-36.0); MCV 105.1 fL (80-95); MPV 9.2 fL (8.0-11.0); Neutrophils % 60.7; Nucleated RBC 0 %; Platelet Count 136 10^3/uL (130-400); RDW 13.9 % (11.8-14.1); RDW-SD 54.7 fL; WBC 4.48 10^3/uL (4.4-10.8)
[2020-12-22 07:45] LABS: ALT 30 U/L (16-63); AST 24 U/L (15-37); Albumin 3.8 g/dL (3.4-5.0); Alkaline Phosphatase 106 U/L (46-116); Anion Gap 5.9 mmol/L (3-11); BUN 6 mg/dL (7-18); Bilirubin, Total 0.4 mg/dL (0.2-1.0); CO2 31.1 mmol/L (21.0-32.0); CREATININE 0.6 mg/dL (0.70-1.30); Chloride 99 mmol/L (98-107); FREE T4 0.99 ng/dL (0.76-1.46); Glucose 119 mg/dL (74-106); Potassium 4.2 mmol/L (3.5-5.1); Sodium 136 mmol/L (136-145); TSH 7.84 uIU/mL (0.36-3.74); Total Protein 7.5 g/dL (6.4-8.2)
[2021-01-04 12:44] LABS: Abs Immature Grans 0.06 10^3/uL (0.0-0.06); Absolute Basophil Count 0.01 10^3/uL (0.0-0.2); Absolute Eosinophil Count 0.01 10^3/uL (0.0-0.7); Absolute Lymphocyte Count 0.71 10^3/uL (1.2-3.4); Absolute Monocyte Count 0.96 10^3/uL (0.1-0.8); Absolute Neutrophil Count 4.75 10^3/uL (1.2-6.7); Basophils % 0.2; Eosinophils % 0.2; Immature Grans % 0.9; Lymphocytes % 10.9; MCH 36.3 pg (27.0-33.0); MCHC 34.1 % (32.0-36.0); MCV 106.2 fL (80-95); MPV 9.2 fL (8.0-11.0); Monocytes % 14.8; Nucleated RBC 0 %; Platelet Count 121 10^3/uL (130-400); RBC 3.86 10^6/uL (4.36-5.78); RDW 14.1 % (11.8-14.1)
[2021-01-04] MEDS: Heparin 500 UNITS/5 ML SYRINGE IV (12:55)
[2021-01-04] MEDS: Normal Saline Flush 10 ML SYR IVP (12:55)
[2021-01-04 13:06] LABS: ALT 30 U/L (16-63); AST 22 U/L (15-37); Albumin 3.7 g/dL (3.4-5.0); Alkaline Phosphatase 96 U/L (46-116); Anion Gap 5.6 mmol/L (3-11); BUN 10 mg/dL (7-18); Bilirubin, Total 0.3 mg/dL (0.2-1.0); CO2 32.4 mmol/L (21.0-32.0); Chloride 101 mmol/L (98-107); FREE T4 0.91 ng/dL (0.76-1.46); Glucose 112 mg/dL (74-106); Magnesium 2.1 mg/dL (1.8-2.4); Potassium 4.2 mmol/L (3.5-5.1); Sodium 139 mmol/L (136-145); TSH 9.62 uIU/mL (0.36-3.74); Total Protein 7.2 g/dL (6.4-8.2)
== END 2021-01-13 23:59 | disposition home or self-care (01) ==
LOC: INF 00:55
PROVIDERS: PCP Family Medicine; Visit Provider Internal Medicine
DX: Z79.899 Other long term (current) drug therapy (principal); C15.9 Malignant neoplasm of esophagus, unspecified; Z45.2 Encounter for adjustment and management of vascular access device; R94.6 Abnormal results of thyroid function studies
CPT/HCPCS: 36591; 80053; 83735; 84439; 84443; 85025